=== PATIENT | female | born 1950 | race Caucasian/White ===

== ENCOUNTER 2021-12-23 15:21 | Outpatient (CLI) | payer SELFPAY, OTHER ==
--- NOTE | 2021-12-23 15:25 | MRI_ITS ---
STUDY: MR Spine Lumbar W/O Contrast 12/23/2021 4:45 PM REASON FOR EXAM: Female, 71 years old. Back pain Pain TECHNIQUE: MR Spine Lumbar W/O Contrast Standardized fat and water weighted pulse sequences were obtained. COMPARISON: None FINDINGS: T12-L1: Loss of intervertebral disc height. There is endplate spondylosis of the vertebral body. Normal central canal and intervertebral neuroforamina. There is bilateral facet arthropathy. Posterior disc bulge. Normal lumbar lordosis. There is no substantial scoliosis. Normal conus medullaris that terminates at the L1. L1-2: Loss of intervertebral disc height. There is endplate spondylosis of the vertebral body. Normal central canal and intervertebral neuroforamina. There is bilateral facet arthropathy. Posterior disc bulge. L2-3: Loss of intervertebral disc height. There is endplate spondylosis of the vertebral body. Normal central canal and intervertebral neuroforamina. There is bilateral facet arthropathy. Posterior disc bulge. L3-4: Loss of intervertebral disc height. There is endplate spondylosis of the vertebral body. Normal central canal and intervertebral neuroforamina. There is bilateral facet arthropathy. Posterior disc bulge. L4-5: Loss of intervertebral disc height. There is endplate spondylosis of the vertebral body. Narrowing of the neural foramina. There is bilateral facet arthropathy. Grade 1 anterolisthesis of L4 on L5. Posterior disc herniation. Mild spinal stenosis. L5-S1: Loss of intervertebral disc height. There is endplate spondylosis of the vertebral body. There is bilateral facet arthropathy. Posterior disc herniation. Bilateral neural foraminal stenosis. Compression of exiting nerve roots. Discogenic endplate changes. Normal visualized sacral ala. Normal visualized paraspinous soft tissue structures. MRI/Spine Lumbar (Routine) IMPRESSION: Multilevel degenerative changes, as described above. L4-5: Narrowing of the neural foramina. There is bilateral facet arthropathy. Grade 1 anterolisthesis of L4 on L5. Posterior disc herniation. Mild spinal stenosis. L5-S1: Posterior disc herniation. Bilateral neural foraminal stenosis. Compression of exiting nerve roots. Discogenic endplate changes. Electronically Signed: Pedro Escalante MD at 16:49 EDT ,
== END 2021-12-23 23:59 | disposition home or self-care (01) ==
PROVIDERS: PCP Family Medicine; Visit Provider Orthopaedic Surgery
DX: M48.061 Spinal stenosis, lumbar region without neurogenic claudication (principal)
CPT/HCPCS: 72148

== ENCOUNTER 2022-11-03 05:52 | Inpatient (IN) | payer SELFPAY ==
[2022-11-03] VITALS (36 sets, daily range): BP systolic 71–154; BP diastolic 42–96; PULSE 74–102; RESP 16–23; TEMP 36.1–37.1; O2SAT 80–100; BMI 32.7
[2022-11-03] MEDS: Lactated Ringers 1,000 ML 15 ML IV ×3 (06:15→14:58)
--- NOTE | 2022-11-03 06:30 | RAD_ITS ---
PROCEDURE: Posterior fusion at the L4-L5 and L5-S1 levels. DATE OF EXAMINATION: 11/03/2022. INDICATION: Female, 72 years old. Chronic low back pain. FLUOROSCOPY TIME (if supplied): (2 minutes) minutes/seconds. 9 images were submitted. RAD/Lumbar Spine 2 or 3 Views IMPRESSION: Intraoperative imaging provided for L4-L5 and L5-S1 fusion. Electronically Signed: New Allan MD at 13:32 EST ,
--- NOTE | 2022-11-03 07:16 | PCM.OPRPT ---
Problems Associated Problem List Diagnoses (1) Spinal stenosis at L4-L5 level: Report of Operation Date of Procedure: 11/03/22 Pre-Operative Diagnosis: 1. Lumbar stenosis, L4-5, L5-S1 with spondylosis 2. Lumbar degenerative disc disease, L4-5, L5-S1 Post-Operative Diagnosis: 1. Lumbar stenosis, L4-5, L5-S1 with spondylosis 2. Lumbar degenerative disc disease, L4-5, L5-S1 Surgery/Procedure Performed:: 1. L4-5 posterior lumbar interbody fusion 2. L5-S1 posterior lumbar interbody fusion 3. Insertion of intervertebral biomechanical devices x2 4. Structural allograft for spinal fusion 5. L4 bilateral laminectomies, foraminotomies, facetectomies, decompression of bilateral nerve roots 6. L5 bilateral laminectomies, foraminotomies, facetectomies, decompression of bilateral nerve roots 7. S1 bilateral laminectomies, foraminotomies, facetectomies, decompression of bilateral nerve roots 8. Pedicle screw fixation 9. Neuro monitoring bilateral upper and bilateral lower extremities Description of Surgical Findings:: The patient is a 72-year-old female with intractable back and leg pain. Image studies confirm the above diagnoses. She has failed conservative treatments to include medication physical therapy and injections. The patient opted for operative intervention understanding the risk to include but not limited to infection, bleeding, damage to nerves arteries and veins, possibility of spinal fluid leak, nonunion, hardware failure, continued pain, need for further surgery, deep vein thrombosis, pulmonary embolism, heart attack, risk of stroke or . The patient was identified in the preoperative holding area. There she received preoperative IV antibiotics Ancef and was then transferred to the operative suite. Once in the operative suite after general endotracheal anesthesia was established the patient was transferred prone to the [facility] operating table. All bony prominences were padded accordingly. The lumbar spine was prepped and draped in the standard surgical fashion. Bear hugger's were not turned on until the drapes were placed and sealed with Ioban. A midline incision was made and taken down to the level of the lumbodorsal fascia. The fascia was divided and subperiosteal dissection was taken down to the level of the transverse processes and sacral ala of L4, L5, and S1 bilaterally. Deep retractors were placed. A bone scalpel was used to make cuts in the lamina and then a series of Kerrisons and rongeurs were used removing the spinous process and lamina at L4 and L5. Then facetectomies of greater than 50% were performed as well as foraminotomies decompressing the bilateral nerve roots. Given the severity of the stenosis I needed to perform wide bilateral laminectomies and near complete facetectomies in order to decompress the neural elements thus creating instability necessitating the fusion. The nerve roots and dura were identified and retracted medially. A knife was utilized to make an annulotomy at L4-5. Endplate elevators, curettes, and pituitaries were utilized to remove disc material. Endplates were prepared with a rasp. An appropriate sized intervertebral peek cage device measuring 10 mm was packed with morselized cancellous allograft and impacted into position thus completing the posterior lumbar interbody fusion at L4-5. The same steps were performed at L5-S1 utilizing a peek cage device measuring 9 mm. Starting points for the pedicle screws were found at the junction of the superior articular process and transverse processes and sacral ala. A power bur was used for the starting points. Pedicle probes were placed bilaterally and then 6.5 x 50 mm screws were placed bilaterally at L4 and L5, 6.5 x 50 mm on the left and 6.5 x 45 mm on the right at S1. Connecting rods were applied and secured with set screws. X-rays were performed showing adequate placement of all hardware. The patient started to get hypotensive and there was some concern from anesthesia. Therefore the closing was expedited so that we could flip the patient supine. The incision was thoroughly irrigated. A deep drain was placed. The fascia was closed with #1 Vicryl, subcutaneous with 2-0 Vicryl and skin with 2-0 nylon. A sterile dressing was applied with 4 x 4's ABD and tape. Sponge instrument and needle counts were correct at the end of the case. Neurophysiologic monitoring was maintained at baseline throughout the duration of the case. The patient was extubated and taken to the PACU without incident. Surgeon: Reese Ortega Type of Anesthesia: General Drains: Hemovac Estimated Blood Loss (mL): 600 cc Fluids Replaced: 3500 cc Grafts/Implants Used: Unified spine, Talos, Vitae OS Complications None Admit VTE Documentation VTE Present on Admission: No
--- NOTE | 2022-11-03 07:17 | PCM.PN.ORT ---
Subjective Subjective The patient was seen and examined in the PACU. Still sedated. Opens her eyes to stimulus and moves all extremities grossly. She is on pressors as anesthesia is having difficulty keeping her blood pressure up. Objective Data Objective Data Vital Signs: Vital Signs Temp Pulse Resp BP Pulse Ox O2 Del Method 97.1 F L 89 18 154/92 H 97 Room Air 11/03/22 06:29 11/03/22 06:29 11/03/22 06:29 11/03/22 06:29 11/03/22 06:29 11/03/22 06:29 Oxygen Delivery Method Room Air Weight: 167 lb 8.821 oz Body Mass Index (BMI) 32.7 Lab / Micro Data Result Diagrams: 11/04/22 05:00 11/04/22 05:00 Physical Exam HEENT normocephalic and head/scalp atraumatic Eyes EOMs intact bilaterally and conjunctivae normal Neck General: normal visual inspection Chest inspection of chest normal and palpation of chest normal Resp normal respiratory effort and normal air movement Cardio regular rate, regular rhythm and peripheral pulses 2+ throughout GI soft to palpation, non-tender and non-distended Back/Spine Back/Spine Narrative: Dressing clean dry and intact. Drain in place and functioning with small amount of serosanguineous fluid in Cervical Spine: cervical ROM normal Thoracic Spine / Upper Back: normal to inspection Lumbar Spine / Lower Back: normal to inspection Extremity normal to inspection, normal capillary refill and no clubbing, cyanosis or edema Skin no rashes or lesions noted General Skin Exam: no breakdown Neuro moves all extremities, no focal motor deficits and deep tendon reflexes 2+ bilaterally Motor Exam: muscle tone normal throughout Assessment & Plan Assessment/Plan (1) Spinal stenosis at L4-L5 level: PLAN: Patient being admitted to ICU. Poultry Slaughterer consulted Keep dressing clean dry and intact. Keep drain in place and record output every shift. Continue antibiotics while drain in place Discussed the situation with the family and answered all of their questions.
--- NOTE | 2022-11-03 07:17 | PCM.DC.SUM ---
Providers Date of Admission: 11/03/22 Primary Care Physician: Dr. Guzman Chan MD Reason For Visit: lumbr 4-5, Lumbar 5-Sacral Posterior Spinal Interb Diagnosis Discharge Diagnosis (1) Spinal stenosis at L4-L5 level: Status: Acute Code(s): M48.061 - Spinal stenosis, lumbar region without neurogenic claudication Medications at Discharge Home Medications venlafaxine 37.5 mg capsule,extended release 24 hr (Effexor XR) 75 mg PO DAILY ANTIDEPRESSANT 12/06/21 dorzolamide 2 % eye drops 1 drp EACH EYE DAILY PREVENTION EYE DISEASE 09/09/22 latanoprost 0.005 % eye drops 1 drp EACH EYE DAILY EYE PREVENTION 09/09/22 timolol maleate 0.5 % eye drops 1 drp EACH EYE DAILY EYE PREVENTION 09/09/22 Bone And Tissue 2 cap PO/SL DAILY SUPPLEMENT 10/20/22 levothyroxine 50 mcg tablet 50 mcg PO DAILY THYROID 10/20/22 hydrocodone-acetaminophen 5-325mg 5mg-325mg 1 tab PO Q6H 7 days #28 tabs 11/03/22 Hospital Course Operations - (L4-5, L5-S1 posterior lumbar interbody fusion, decompression, posterior spinal fusion with instrumentation, use of allograft) Summary of Care Provided Minutes Spent on Discharge: 15 Hospital Course: The patient is a 72-year-old female who underwent L4-S1 fusion on 11/03/2022. Postoperatively she was hypotensive and on pressors and was subsequently admitted to the ICU. The coordinator cardiopulmonary services was consulted. She did well in the ICU and was off of pressors and her blood pressure was stable on postoperative day 1. She was subsequently admitted to the [facility] floor. The hospitalist was consulted for medical management. No other significant medical issues were reported. Her drain was pulled on postop day 3. She was doing well. Her pain was well controlled and she was mobilizing well.. She was subsequently discharged home on 11/06/2022 to follow-up with Dr. Ortega in 3 weeks Physical Exam Const alert, oriented x3 and no apparent distress General Appearance: cooperative, comfortable and well kempt HEENT normocephalic and head/scalp atraumatic Eyes EOMs intact bilaterally and conjunctivae normal Neck full ROM General: normal visual inspection Chest inspection of chest normal and palpation of chest normal Resp normal respiratory effort and normal air movement Effort and Inspection: able to speak in complete sentences Cardio regular rate and peripheral pulses 2+ throughout GI soft to palpation, non-tender and non-distended Back/Spine Back/Spine Narrative: Dressing clean dry and intact. Incision well approximated with interrupted sutures in place. No tenderness erythema drainage or fluctuance. Drain pulled Cervical Spine: cervical ROM normal Thoracic Spine / Upper Back: normal to inspection Lumbar Spine / Lower Back: normal to inspection Extremity normal to inspection, full ROM, normal capillary refill, no joint enlargement and no calf tenderness Skin no rashes or lesions noted General Skin Exam: no breakdown Neuro oriented x3, CN's II-XII intact bilaterally, moves all extremities, no focal motor deficits, no sensory deficits noted and deep tendon reflexes 2+ bilaterally Motor Exam: strength 5/5 throughout and muscle tone normal throughout Weight / BMI Weight Weight: 167 lb 8.821 oz Body Mass Index (BMI) 32.7 ABG / Lab / Microbiology Data Result Diagrams: 11/05/22 14:09 11/06/22 07:34 D/C Instructions Discharge Diet: No restrictions Lifting Restrictions: No lifting greater than 5 pounds Additional Activity Instructions: No repetitive bending or twisting. Wear back brace at all times. Okay to remove brace to sleep Call your doctor if your incision/area has: Continuous Slow Oozing, Sudden Increased Bleeding, Increased Pain/ Swelling, Increased Redness, Foul Smelling Discharge and Swelling at the incision site Call your doctor if you observe: Fever of 101 or Higher, Coldness, Increased Pain, Numbness or Tingling, Change in Color, Inability to urinate, Inability to have a bowel movement, Using more than 1 pad per hour, Shortness of breath, Dizziness, Fainting spells, Swelling in the ankles, Chest pain, Prolonged hiccupping, Increased palpitations (irregular heartbeat), Calf discomfort and Uncontrolled pain Cleanse incision/area with: Do not get Incision Wet and Keep Dressing Clean & Dry Additional Dressing/Incision Instructions: Change dressing daily with iodine gauze and tape. Use waterproof dressing to shower Please Follow Up With: Reese Ortega DO When: 3 weeks Meaningful Use Info Meaningful Use Diagnoses (Choose all that apply): None applicable Discharge Plan Admission Admit Date/Time: 11/03/22 05:52 Attending Provider: Reese Ortega Primary Care Provider: Guzman Chna Consulting Providers: Ny Hays ; Ny Mcwilliams ; Stacy Aj ; Adriana Stewart ; Jarred White ; Pino Gabriel ; Irvin Camilo ; Miguelina Chang ; Yair Tabares ; Raul Zhao ; Gaurav Yun ; Nannette Vogt ; Geovanny Matos ; Naila Santiago ; Adelso Hodgson ; Ayo May ; Estiven Donald ; Estelle Miranda ; Anthony Childers ; Pati Silva NP ; Anmol Joseph ; Phillip Negrete ; Sin Draper ; Kemar Ladd ; Flora Farris PATIENT MONITOR Instructions Additional Instructions / Restrictions: 1. During your procedure, you received sedation through your IV. Please follow these instructions for the next 24 hours: Do not drive a motor vehicle, do not drink any alcoholic beverages, and do not sign any legal documents or make personal or business decisions. A responsible adult should stay with you at least 6 hours after the procedure. 2. Keep your surgical site/incision clean and the dressing dry and intact. Change dressing daily. You may use an ice pack at the surgical site to reduce any swelling or discomfort. 3. Monitor the incision site for any signs or symptoms of infection. Watch for redness, excessive swelling or drainage, or continued pain at the incision site after 3 days. Contact your physician immediately for a fever, chills or a temperature of 101.5? F or greater. 4. Take your medication exactly as prescribed by your physician. Do not attempt to wean yourself off any of your medications even though your pain is improving. This process needs to be carefully monitored by your doctor. Take any antibiotics prescribed exactly as directed and until they are gone. 5. Avoid stretching, bending, pulling, twisting or any sudden movements. Do not bend or twist at the waist. 6. No lifting greater than 5 pounds. 7. Do not operate a motor vehicle, equipment or a power tool while taking pain medication 8. Do not have any manipulation done by a chiropractor or any other physician without first consulting with the surgeon 9. Please contact our office if you are even scheduled for a CT scan or an MRI. 11. Please call us if you have any questions, problems or concerns. Discharge Orders/Prescriptions Prescriptions: New hydrocodone-acetaminophen 5-325 mg tablet 1 tab PO Q6H 7 Days Qty: 28 0RF Continued venlafaxine [Effexor XR] 37.5 mg capsule,extended release 24hr 75 mg PO DAILY latanoprost 0.005 % drops 1 drp EACH EYE DAILY Label Comments: INSTILL 1 DROP IN BOTH EYES EVERY DAY AT BEDTIME timolol maleate 0.5 % drops 1 drp EACH EYE DAILY Label Comments: INSTILL 1 DROP IN BOTH EYES EVERY MORNING dorzolamide 2 % drops 1 drp EACH EYE DAILY Label Comments: INSTILL 1 DROP IN RIGHT EYE EVERY DAY levothyroxine 50 mcg Tablet 50 mcg PO DAILY Bone And Tissue 2 cap PO/SL DAILY Referrals / Follow Up: Reese Ortega DO [Med Staff - Active Staff] - Guzman Chan MD [Primary Care Provider] - Disposition Disposition (needs filled in before D/C Order can be placed): Home, Self Care
[2022-11-03] MEDS: Cefazolin 2 GM in 0.9% Normal Saline 100 ML IV (07:38)
[2022-11-03] MEDS: Cefazolin 1 GM/50 ML BAG IV ×2 (07:38→17:32)
[2022-11-03] MEDS: Heparin 10,000 UNITS/10 ML Vial 10000 UNITS (08:33)
[2022-11-03] MEDS: THROMBIN (RECOMBINANT) 20,000 UNIT VIAL 20000 UNIT TOPICAL (08:45)
[2022-11-03] MEDS: Bupivacaine 0.25% 30 ML Vial (12:00)
[2022-11-03 13:32] LABS: Hematocrit 20.9 % (37-47)
--- NOTE | 2022-11-03 15:41 | CT_ITS ---
We are attempting to reach an attending provider to discuss findings. An addendum with communication details will be sent when the communication is complete. STUDY: CT ABDOMEN AND PELVIS WITHOUT CONTRAST REASON FOR EXAM: Female, 72 years old. possible bleed, lumbar laminectomy today, hemoglobin dropped. RADIATION DOSAGE (If Supplied By Facility): CTDIvol = ( 13.30 ) mGy, DLP = ( 656.90 ) mGycm TECHNIQUE: Transaxial images were obtained from the dome of the diaphragm to the symphysis pubis without oral contrast, and without intravenous contrast. Sagittal and coronal images were reconstructed. Individualized dose optimization techniques were used for this CT. COMPARISON: None. FINDINGS: Minor bibasilar atelectasis.. The visualized portions of the heart are within normal limits. Moderate size hiatal hernia noted Liver is enlarged and fatty infiltrated without mass or bile duct dilatation. Calcified stones in the gallbladder without evidence for acute cholecystitis. Normal spleen. Normal pancreas. Normal bilateral adrenal glands. No evidence of renal obstruction. Tiny nonobstructing left renal calculus. There is a small simple cyst right kidney and complex cyst in the left kidney with mild calcification. Normal visualized stomach. Normal small intestine. Hyperattenuated intraluminal content noted within the proximal ascending colon.. This could represent recently ingested radiopaque material however intraluminal hemorrhage not excluded. No evidence for acute appendicitis Atherosclerotic changes of the aorta without evidence for aneurysm. Normal inferior vena cava. Normal retroperitoneum. Incompletely distended thick walled bladder containing Carter catheter. Uterus not visualized consistent with hysterectomy Large fat-containing right inguinal hernia.. Postsurgical changes status post bilateral laminectomy and posterior fusion with disc spacer placement at L4-5 and L5-S1 There is diffuse soft tissue density within the spinal canal obscuring the epidural fat at both L4-5 and more pronounced at L5-S1 in association with tiny air bubbles consistent with postsurgical change. There are similar changes seen within the posterior paraspinous soft tissues. Percutaneously placed drain is noted on the right at L4-5. Characterization of the soft tissues density within the spinal canal is difficult due to artifact related to metallic hardware.. Possibility of hemorrhage within the canal or posterior paraspinous soft tissues cannot be entirely excluded. This may be further assessed with MRI if clinically warranted. There is no definitive evidence for retroperitoneal hemorrhage CT/Abdomen/Pelvis without Cont IMPRESSION: Postsurgical changes L4-5 and L5-S1.. No definitive evidence for significant intraspinal hemorrhage however cannot definitively exclude hemorrhage within the canal or posterior paraspinous soft tissues. MRI would be helpful for further characterization if clinically warranted There is hyperattenuated density within the proximal ascending colon of indeterminate etiology. Cannot exclude acute hemorrhage. Radionuclide tagged red blood cells study would be helpful for further evaluation if clinically warranted Electronically Signed: Reese Harley MD at 16:49 EST ,
--- NOTE | 2022-11-03 15:52 | CON.PCM.HO_ITS ---
Assessment & Plan Assessment/Plan (1) Spinal stenosis at L4-L5 level: (2) Hypotension: (3) Shock: PLAN: Plan 1. Shock exact etiology unclear possible differential distributive/hypovolemic: Patient is, may be due to hypovolemia or distributive. Patient is being admitted in ICU. PICC line ordered. Currently on Home-Synephrine but I will discontinue and change it to norepinephrine drip. [employer] Reading [employer] consult. Patient heart rate is in normal limit. No hypoxia or tachypnea. Labs ordered including CBC posttransfusion, CMP, PT/INR, PTT, magnesium and phosphorus ordered. On Ringer lactate. 2. Severe anemia: Preop patient's H&H was 12.3/27.5%. Platelet count 294,000 on 10/12/2022. Hemoglobin dropped to 6.0/21%. Patient is on secondary to PRBC transfusion. Twelve-lead EKG shows normal sinus rhythm at 68 bpm, low voltage QRS, QTc 490 ms. Patient not having any chest pressure or anginal-like sympt oms. 3. Lumbar spinal stenosis L4-5 L5-S1 with spondylosis status post L5-S1 posterior lumbar interbody fusion, L4, L5 and S1 bilateral laminectomy with pedicle screw fixation on 11/03/2022: Postop day 0: Discussed with the Jordan. Monitor Carter catheter urine output. Patient has surgical drain. 4. Hypothyroidism: Patient last TSH was 9.0. TSH and free T4 tomorrow AM. Continue levothyroxine. 5. History of TIA, migraine headache and chronic back pain with lumbar spinal stenosis: Home medication reconciliation done. DVT prophylaxis: Bilateral SCDs. Currently, pharmacological prophylaxis contraindicated in view of shock and severe anemia HPI Consult Data Date of Consult: 11/03/22 Attending Care Provider: Hypotension, patient on vasopressor. HPI Narrative Reason for Consultation: Hypotension on vasopressor. HPI Narrative: Seen and examined in the PACU. SAAD WEBSTER, is a 72 F had elective L4-5, L5-S1 lumbar fusion with bilateral laminectomy of L4-L5 and S1 with pedicle screws fixation today. Patient has lumbar spinal stenosis, degenerative disc disease for long time. She she has intractable back pain and leg pain and failed conservative treatment including physical therapy and spinal injections therefore had elective surgery today by Dr. Ortega. She had surgery through spinal approach. During surgery, her BP dropped to systolic 81 and was given IV fluid restriction and then started on Home- Synephrine drip.H&H also done in afternoon shows 6.0/20% she has second unit of PRBC transfusion running. Dr. Reese Ortega called me to see the patient as she needs ICU care. I talked to anesthesiologist Dr. Quintana and he said patient had surgery on hi s supine position with legs and upper body down therefore she might of pooling of blood in lower extremities. Estimated blood loss about 500 mL. Patient is awake and she is not hypoxic pulse ox 94% on room air. Last BP 118/67 and vasopressin and Home-Synephrine. Patient is further admitted in ICU. [facility] Medical History Back pain History of pain when walking Migraine headache Non-smoker Shortness of breath on exertion Stroke/cerebrovascular accident Thyroid disease TIA (transient ischemic attack) Wears glasses Wears hearing aid Home Medications venlafaxine 37.5 mg capsule,extended release 24 hr (Effexor XR) 75 mg PO DAILY ANTIDEPRESSANT 12/06/21 [History Last Taken 11/03/22] dorzolamide 2 % eye drops 1 drp EACH EYE DAILY PREVENTION EYE DISEASE 09/09/22 [History Last Taken 11/02/22] latanoprost 0.005 % eye drops 1 drp EACH EYE DAILY EYE PREVENTION 09/09/22 [History Last Taken 11/02/22] timolol maleate 0.5 % eye drops 1 drp EACH EYE DAILY EYE PREVENTION 09/09/22 [History Last Taken 11/02/22] Bone And Tissue 2 cap PO/SL DAILY SUPPLEMENT 10/20/22 [History Last Taken Unknown] levothyroxine 50 mcg tablet 50 mcg PO DAILY THYROID 10/20/22 [History Last Taken 11/03/22] hydrocodone-acetaminophen 5-325mg 5mg-325mg 1 tab PO Q6H 7 days #28 tabs 11/03/22 [Rx Last Taken Unknown] Allergy/AdvReac Type Severity Reaction Status Date / Time No Known Allergies Allergy Verified 11/03/22 06:27 Surgical History H/O eye surgery H/O hernia repair H/O: hysterectomy Hx of appendectomy Hx of knee surgery Social History Smoking Status: Never smoker alcohol intake: never ROS ROS Narrative Constitutional: Denies dizziness lightheadedness. HEENT: Reports systems reviewed and no addt'l complaints, except as documented Respiratory/Chest: Denies chest pain, shortness of breath at rest or with exertion. Denies dyspnea. Gastrointestinal: Denies coffee ground emesis, hematemesis or vomiting Genitourinary: Has Carter catheter. Denies burning micturition prior to surgery. Musculoskeletal: Reports joint pain and limited range of motion Spine: Spinal surgery. Drain present Neurologic: Denies seizure-like activity. History of TIA. History of chronic migraine headache skin: No ulcer. No rash Endocrinology: Reports systems reviewed and no addt'l complaints, except as documented Hematologic/Lymphatic: Reports systems reviewed and no addt'l complaints, except as documented Rest 14 ROS are negative except as mentioned in HPI Physical Exam Narrative Physical exam General: Awake, alert oriented x3, Cooperative HEENT: Atraumatic, PERRLA, EOMI, Normocephalic Oral: Oral mucosa dry no Gingival or Mucosal Lesions/ Ulcerations Neck: Supple, No JVD, Negative Carotid Bruits Lungs: Air entry diminished in bilateral lung bases. No crepitation/rhonchi. No hypoxia or tachypnea. Cardiovascular: Sinus rhythm, not tachycardic. Low-volume pulse. Hypotension on vasopressor. No murmurs Abdomen: Bowel Sounds sluggish, Soft, Non Tender, Non-Distended : Carter catheter, no urine output. No renal angle tenderness. No suprapubic tenderness. Extremities: No edema, Capillary Refill Less than 3 Seconds Skin: No rashes, No breakdown Musculoskeletal: No Tenderness to Palpation of Joints or Extremities. ROM and muscle strength did not examine as patient on vasopressor Spine: Has drain. Lumbar laminectomy and fusion surgery today. Neurological: Cranial nerves II-XII grossly intact, DTR 2+/4 Psych/Mental Status: Flat affect Lab / Micro Data Result Diagrams: 11/03/22 13:08 Labs: Laboratory Results - last 24 hr 11/03/22 13:08: Hgb 6.0 L*, Hct 20.9 L 11/03/22 13:08: Blood Type A NEGATIVE, Antibody Screen NEGATIVE, Crossmatch See Detail Radiology Impression Lumbar Spine X-Ray 11/03/22 06:30 IMPRESSION: Intraoperative imaging provided for L4-L5 and L5-S1 fusion. Electronically Signed: New Allan MD at 13:32 EST , Charges/Coding Visit Charges Office Visits / Consults: [id number] IP Consult L5
[2022-11-03] MEDS: Lactated Ringers 1,000 ML 100 ML IV (17:38)
[2022-11-03] MEDS: Morphine 4 MG/ML Syringe IV (19:03)
[2022-11-03 20:33] LABS: Absolute Lymphocyte Count 1.22 X10^3/uL (0.83-4.51); Absolute Neutrophil Count 13.5 X10^3/uL (2.0-7.7); Basophil# 0.02 X10^3/uL; Basophil% 0.1 % (0-1); Hematocrit 36.1 % (37-47); Hemoglobin 11.4 g/dL (12.0-15.0); Lymphocyte # 1.22 X10^3/ul (0.83-4.51); Lymphocyte % 7.7 % (19-41); Mean Corp Hgb Conc 31.6 g/dL (32-36); Mean Corpuscular Hgb 28.1 pg (27.0-32.0); Mean Corpuscular Volume 89.1 fL (81-99); Mean Platelet Vol. 9.9 fl (6.2-12.0); Monocyte# 0.97 X10^3/uL; Monocyte% 6.1 % (0-10); NRBC Flagged by Analyzer 0 % (0-5); Neutrophil # 13.48 X10^3/uL (2.7-7.7); Neutrophil % 85.2 % (47-70); Platelet Count 202 K/mm3 (150-450); RBC Distribution Width CV 14.4 % (11.6-14.6); RBC Distribution Width SD 46.5 fl (35.1-43.9); Red Blood Count 4.05 M/mm3 (4.2-5.4); White Blood Count 15.8 K/mm3 (4.4-11.0)
[2022-11-03] MEDS: Lactated Ringers 1,000 ML 999 ML IV (20:34)
[2022-11-03 21:00] LABS: Albumin, Serum 2.7 g/dL (3.2-5.0); BUN 19 mg/dL (7-18); BUN/Creat Ratio 15.7 RATIO (10-20); Creatinine, Serum 1.21 mg/dL (0.55-1.02); EST Glomerular Filtration Rate 46 mL/min (>60); Est Glom Filt Rate - Afr Amer 56 mL/min (>60); Estimated Creatinine Clearance 31.71 ml/min; Glucose 185 mg/dL (74-106); Protein, Total 5.5 g/dL (6.4-8.2)
[2022-11-03 21:01] LABS: AST(SGOT) 133 U/L (15-37); Alanine Aminotransfer ALT/SGPT 92 U/L (13-56); Alkaline Phosphatase 32 U/L (45-117); Anion Gap 8 (5-15); Calcium,Total 7.4 mg/dL (8.5-10.1); Chloride 107 mmol/L (98-107); Globulin 2.8 g/dL (2.2-4.2); Magnesium 1.8 mg/dL (1.6-2.6); Phosphorus 3.9 mg/dL (2.5-4.9); Potassium 5.4 mmol/L (3.5-5.1); Sodium Level 140 mmol/L (136-145)
[2022-11-03] MEDS: Acetaminophen 500 MG Tablet 1000 MG PO (21:36)
[2022-11-03] MEDS: oxyCODONE 5 MG Tablet PO (21:37)
[2022-11-03] MEDS: Senna/Docusate Sodium 1 Tablet 2 TABLET PO (21:37)
[2022-11-03] MEDS: Latanoprost 0.005% 1 Bottle 1 DRP EACH EYE (21:38)
--- NOTE | 2022-11-03 22:00 | NURSING ---
PTT/PT/INR rejected by lab due to insufficient amount of blood. Lab notified to come draw due to poor vascular access.
[2022-11-03 23:41] LABS: International Normalized Ratio 1.2; Prothrombin Time (Protime)PT. 15.2 SECONDS (11.7-14.9)
[2022-11-04] VITALS (23 sets, daily range): BP systolic 92–131; BP diastolic 50–90; PULSE 92–112; RESP 14–22; TEMP 36.4–37.2; O2SAT 92–99; BMI 34.1
[2022-11-04] MEDS: Cefazolin 1 GM/50 ML BAG IV ×3 (01:23→21:10)
[2022-11-04] MEDS: oxyCODONE 5 MG Tablet PO ×3 (05:04→21:10)
[2022-11-04] MEDS: Levothyroxine 50 MCG Tablet PO (05:05)
[2022-11-04] MEDS: Acetaminophen 500 MG Tablet 1000 MG PO ×3 (05:05→21:12)
[2022-11-04 05:08] LABS: Absolute Lymphocyte Count 1.32 X10^3/uL (0.83-4.51); Absolute Neutrophil Count 7.4 X10^3/uL (2.0-7.7); Basophil# 0.01 X10^3/uL; Basophil% 0.1 % (0-1); Hematocrit 26.3 % (37-47); Hemoglobin 8.6 g/dL (12.0-15.0); Lymphocyte # 1.32 X10^3/ul (0.83-4.51); Lymphocyte % 13.4 % (19-41); Mean Corp Hgb Conc 32.7 g/dL (32-36); Mean Corpuscular Hgb 28.5 pg (27.0-32.0); Mean Corpuscular Volume 87.1 fL (81-99); Mean Platelet Vol. 9.5 fl (6.2-12.0); Monocyte% 11.1 % (0-10); NRBC Flagged by Analyzer 0 % (0-5); Neutrophil # 7.41 X10^3/uL (2.7-7.7); Platelet Count 136 K/mm3 (150-450); RBC Distribution Width CV 14.7 % (11.6-14.6); Red Blood Count 3.02 M/mm3 (4.2-5.4); White Blood Count 9.9 K/mm3 (4.4-11.0)
--- NOTE | 2022-11-04 05:15 | RAD_ITS ---
STUDY: X-RAY CHEST REASON FOR EXAM: Female, 72 years old. sob TECHNIQUE: Single frontal view of the chest. COMPARISON: None. FINDINGS: Possible lingular infiltrate or small effusion. There is no demonstrated pleural abnormality. Normal size heart. Normal mediastinum and kia. Normal visualized pulmonary arteries. Normal visualized aortic arch and descending thoracic aorta. Normal visualized thoracic spine. Normal visualized ribs, clavicles, and shoulders. There is no demonstrated abnormality of the visualized soft tissue structures of the upper abdomen. RAD/Chest 1 View (Portable) IMPRESSION: Possible small effusion or lingular infiltrate Electronically Signed: Aaron Izquierdo MD at 0:00 EST ,
[2022-11-04 05:19] LABS: Anion Gap 6 (5-15); BUN 20 mg/dL (7-18); BUN/Creat Ratio 16.4 RATIO (10-20); Calcium,Total 7.2 mg/dL (8.5-10.1); Chloride 107 mmol/L (98-107); Creatinine, Serum 1.22 mg/dL (0.55-1.02); EST Glomerular Filtration Rate 46 mL/min (>60); Est Glom Filt Rate - Afr Amer 56 mL/min (>60); Estimated Creatinine Clearance 31.45 ml/min; Glucose 138 mg/dL (74-106); Potassium 4.8 mmol/L (3.5-5.1); Sodium Level 138 mmol/L (136-145)
--- NOTE | 2022-11-04 07:26 | EX.PCM.CONCC ---
Assessment & Plan Assessment/Plan (1) Hypotension: PLAN: Plan RECOMMENDATIONS: 1. Continue to monitor H&H and transfuse if hemoglobin drops below 7 g/dL. 2. Routine postoperative care per orthopedic recommendations. 3. Encourage incentive spirometer use and mobilize patient as tolerated. 4. We will sign off from a critical care perspective. Please call with any additional questions. IMPRESSIONS: 1. Hypotension Most likely multifactorial in etiology with vasodilatory effects of anesthesia coupled with fluid shifts intraoperatively and anemia, requiring transfusion of blood products. With volume expansion and transfusion of packed red blood cells, the patient's hemodynamic status has stabilized. She has been weaned from vasopressors and remains hemodynamically stable. I would recommend that we continue to monitor her H&H and transfuse if hemoglobin drops below 7 g/dL. 2. History of spinal stenosis status post L4-S1 fusion Continue routine postoperative care per orthopedic surgery recommendations. 3. History of hypothyroidism/TIA/chronic back pain/depression Complicates care, management, recovery and prognosis. Continue home medications as indicated. This note was generated with [employer] dictation software. It may contain incorrect words, spelling, and punctuation that were not noted in checking the note before signing. HPI Consult Data Date of Consult: 11/05/22 HPI Narrative Reason for Consultation: Hypotension and anemia HPI Narrative: The patient is a 72-year-old female, with a history as outlined below, who presented presented to the hospital for an elective surgery due to a history of spinal stenosis and neurogenic claudication. On November 03, the patient underwent an L4-S1 fusion. Intraoperative blood loss was noted to be 600 cc with a total of 3.5 L of fluid administered intraoperatively. According to documentation, the patient's preoperative H&H on October 12, 2022 was noted to be 12.3 and 27, respectively. Platelet count was noted to be 294,000. According to anesthesia documentation, the patient became hypotensive intraoperatively and was started on phenylephrine. Postprocedure lab work indicated a hemoglobin of 6.0. The patient, to date, has been transfused 2 units of packed red blood cells. Her hemoglobin this morning was noted to be 8.6 g/dL. Ultimately, the patient was transferred to the ICU postoperatively due to her vasopressor requirement. However, with volume expansion and transfusion of blood products, the patient was able to be weaned off of Levophed. She is currently documented to be overall net +6.7 L for the hospitalization. She is maintaining appropriate oxygen saturations on room air. She has no specific complaints, other than residual low back pain. [facility] Medical History Back pain History of pain when walking Migraine headache Non-smoker Shortness of breath on exertion Stroke/cerebrovascular accident Thyroid disease TIA (transient ischemic attack) Wears glasses Wears hearing aid Home Medications venlafaxine 37.5 mg capsule,extended release 24 hr (Effexor XR) 75 mg PO DAILY ANTIDEPRESSANT 12/06/21 [History Last Taken 11/03/22] dorzolamide 2 % eye drops 1 drp EACH EYE DAILY PREVENTION EYE DISEASE 09/09/22 [History Last Taken 11/02/22] latanoprost 0.005 % eye drops 1 drp EACH EYE DAILY EYE PREVENTION 09/09/22 [History Last Taken 11/02/22] timolol maleate 0.5 % eye drops 1 drp EACH EYE DAILY EYE PREVENTION 09/09/22 [History Last Taken 11/02/22] Bone And Tissue 2 cap PO/SL DAILY SUPPLEMENT 10/20/22 [History Last Taken Unknown] levothyroxine 50 mcg tablet 50 mcg PO DAILY THYROID 10/20/22 [History Last Taken 11/03/22] hydrocodone-acetaminophen 5-325mg 5mg-325mg 1 tab PO Q6H 7 days #28 tabs 11/03/22 [Rx Last Taken Unknown] Allergy/AdvReac Type Severity Reaction Status Date / Time No Known Allergies Allergy Verified 11/03/22 06:27 Surgical History H/O eye surgery H/O hernia repair H/O: hysterectomy Hx of appendectomy Hx of knee surgery Social History Smoking Status: Never smoker alcohol intake: never ROS ROS Narrative 10 systems were reviewed with pertinent positives as noted in the HPI above. Physical Exam Const alert and no apparent distress General Appearance: cooperative HEENT normocephalic and head/scalp atraumatic Eyes PERRL, EOMs intact bilaterally and conjunctivae normal Neck supple General: trachea midline Chest inspection of chest normal Resp normal respiratory effort Auscultation: Negative for rales, rhonchi or wheezes Cardio regular rate and regular rhythm GI normal to inspection, nondistended, normoactive bowel sounds Extremity no clubbing, cyanosis or edema Skin no rashes or lesions noted Neuro no focal motor deficits Psych cooperative and affect normal Lab / Micro Data Result Diagrams: 11/05/22 03:30 11/05/22 03:30 Labs: Laboratory Results - last 24 hr 11/03/22 13:08: Hgb 6.0 L*, Hct 20.9 L 11/03/22 13:08: Blood Type A NEGATIVE, Antibody Screen NEGATIVE, Crossmatch See Detail 11/03/22 20:25: WBC 15.8 H, RBC 4.05 L, Hgb 11.4 L, Hct 36.1 L, MCV 89.1, MCH 28.1, MCHC 31.6 L, RDW Std Deviation 46.5 H, RDW Coeff of Mayda 14.4, Plt Count 202, MPV 9.9, Immature Gran % (Auto) 0.900, Neut % (Auto) 85.2 H, Lymph % (Auto) 7.7 L, Garrard % (Auto) 6.1, Eos % (Auto) 0.0, Baso % (Auto) 0.1, Absolute Neuts (auto) 13.5 H, Absolute Lymphs (auto) 1.22, Nucleated RBC % 0 11/03/22 20:25: PT Cancelled, INR Cancelled, APTT Cancelled 11/03/22 20:25: Sodium 140, Potassium 5.4 H, Chloride 107, Carbon Dioxide 25.0, Anion Gap 8, BUN 19 H, Creatinine 1.21 H, Estim Creat Clear Calc 31.71, Est GFR (MDRD) Af Amer 56 L, Est GFR (MDRD) Non-Af 46 L, BUN/Creatinine Ratio 15.7, Glucose 185 H, Calcium 7.4 L, Phosphorus 3.9, Magnesium 1.8, Total Bilirubin 0.60, AST 133 H, ALT 92 H, Alkaline Phosphatase 32 L, Total Protein 5.5 L, Albumin 2.7 L, Globulin 2.8, Albumin/Globulin Ratio 1.0 11/03/22 23:13: PT 15.2 H, INR 1.2, APTT 23.0 L 11/04/22 05:00: WBC 9.9, RBC 3.02 L, Hgb 8.6 L, Hct 26.3 L, MCV 87.1, MCH 28.5, MCHC 32.7, RDW Std Deviation 47.0 H, RDW Coeff of Mayda 14.7 H, Plt Count 136 L, MPV 9.5, Immature Gran % (Auto) 0.400, Neut % (Auto) 75.0 H, Lymph % (Auto) 13.4 L, Garrard % (Auto) 11.1 H, Eos % (Auto) 0.0, Baso % (Auto) 0.1, Absolute Neuts (auto) 7.4, Absolute Lymphs (auto) 1.32, Nucleated RBC % 0 11/04/22 05:00: Sodium 138, Potassium 4.8, Chloride 107, Carbon Dioxide 25.0, Anion Gap 6, BUN 20 H, Creatinine 1.22 H, Estim Creat Clear Calc 31.45, Est GFR (MDRD) Af Amer 56 L, Est GFR (MDRD) Non-Af 46 L, BUN/Creatinine Ratio 16.4, Glucose 138 H, Calcium 7.2 L Radiology Impression Lumbar Spine X-Ray 11/03/22 06:30 IMPRESSION: Intraoperative imaging provided for L4-L5 and L5-S1 fusion. Electronically Signed: New Allan MD at 13:32 EST , Abdomen/Pelvis CT 11/03/22 15:41 IMPRESSION: Postsurgical changes L4-5 and L5-S1.. No definitive evidence for significant intraspinal hemorrhage however cannot definitively exclude hemorrhage within the canal or posterior paraspinous soft tissues. MRI would be helpful for further characterization if clinically warranted There is hyperattenuated density within the proximal ascending colon of indeterminate etiology. Cannot exclude acute hemorrhage. Radionuclide tagged red blood cells study would be helpful for further evaluation if clinically warranted Electronically Signed: Reese Harley MD at 16:49 EST , ADDENDUM: 11/03/22 1657 IMPRESSION: Postsurgical changes L4-5 and L5-S1.. No definitive evidence for significant intraspinal hemorrhage however cannot definitively exclude hemorrhage within the canal or posterior paraspinous soft tissues. MRI would be helpful for further characterization if clinically warranted There is hyperattenuated density within the proximal ascending colon of indeterminate etiology. Cannot exclude acute hemorrhage. Radionuclide tagged red blood cells study would be helpful for further evaluation if clinically warranted N.B. : The above Results were Read Back by Reese Harley MD to Eduardo Rosario RN, and understanding confirmed on 11/03/2022 16:50:29 (ET). Electronically Signed: Reese Harley MD at 16:49 EST , Charges/Coding Visit Charges Inpatient E&M: 09940 Init Hosp L3
--- NOTE | 2022-11-04 07:33 | PN.HOSP_ITS ---
Hospitalist Note Chart reviewed. Patient transferred to the ICU. Hospitalist and forest and conservation worker consulted. We will follow peripherally while patient is in the intensive care unit.
--- NOTE | 2022-11-04 07:33 | PCM.HOSP.N ---
Hospitalist Note Chart reviewed. Patient transferred to the ICU. Hospitalist and news wire photo operator consulted. We will follow peripherally while patient is in the intensive care unit.
--- NOTE | 2022-11-04 07:43 | PN.ORTHO_ITS ---
Subjective Subjective The patient was seen and examined postoperative day 1. She is lying in bed resting comfortably. Her pain is minimal. She is alert and oriented and comfortable. She denies any acute numbness tingling or weakness Objective Data Objective Data Vital Signs: Vital Signs Temp Pulse Resp BP Pulse Ox O2 Del Method O2 Flow Rate 97.8 F 102 H 14 97/52 L 95 Nasal Cannula 2 11/04/22 06:00 11/04/22 07:00 11/04/22 07:00 11/04/22 07:00 11/04/22 07:00 11/04/22 07:00 11/04/22 07:00 Oxygen Flow Rate (L/min) 2 Oxygen Delivery Method Nasal Cannula Weight: 180 lb 12.465 oz Body Mass Index (BMI) 34.1 Intake & Output: Intake and Output for Last 24 Hours 11/02/22 11/03/22 11/04/22 23:59 23:59 23:59 Intake Total 7431.73 / 7431.73 756.67 / 756.67 Output Total 1060 / 1060 400 / 400 Balance 6371.73 / 6371.73 356.67 / 356.67 Lab / Micro Data Result Diagrams: 11/04/22 05:00 11/04/22 05:00 Labs: Laboratory Results - last 24 hr 11/03/22 13:08: Hgb 6.0 L*, Hct 20.9 L 11/03/22 13:08: Blood Type A NEGATIVE, Antibody Screen NEGATIVE, Crossmatch See Detail 11/03/22 20:25: WBC 15.8 H, RBC 4.05 L, Hgb 11.4 L, Hct 36.1 L, MCV 89.1, MCH 28.1, MCHC 31.6 L, RDW Std Deviation 46.5 H, RDW Coeff of Mayda 14.4, Plt Count 202, MPV 9.9, Immature Gran % (Auto) 0.900, Neut % (Auto) 85.2 H, Lymph % (Auto) 7.7 L, Boyle % (Auto) 6.1, Eos % (Auto) 0.0, Baso % (Auto) 0.1, Absolute Neuts (auto) 13.5 H, Absolute Lymphs (auto) 1.22, Nucleated RBC % 0 11/03/22 20:25: PT Cancelled, INR Cancelled, APTT Cancelled 11/03/22 20:25: Sodium 140, Potassium 5.4 H, Chloride 107, Carbon Dioxide 25.0, Anion Gap 8, BUN 19 H, Creatinine 1.21 H, Estim Creat Clear Calc 31.71, Est GFR (MDRD) Af Amer 56 L, Est GFR (MDRD) Non-Af 46 L, BUN/Creatinine Ratio 15.7, Glucose 185 H, Calcium 7.4 L, Phosphorus 3.9, Magnesium 1.8, Total Bilirubin 0.60, AST 133 H, ALT 92 H, Alkaline Phosphatase 32 L, Total Protein 5.5 L, Albumin 2.7 L, Globulin 2.8, Albumin/Globulin Ratio 1.0 11/03/22 23:13: PT 15.2 H, INR 1.2, APTT 23.0 L 11/04/22 05:00: WBC 9.9, RBC 3.02 L, Hgb 8.6 L, Hct 26.3 L, MCV 87.1, MCH 28.5, MCHC 32.7, RDW Std Deviation 47.0 H, RDW Coeff of Mayda 14.7 H, Plt Count 136 L, MPV 9.5, Immature Gran % (Auto) 0.400, Neut % (Auto) 75.0 H, Lymph % (Auto) 13.4 L, Boyle % (Auto) 11.1 H, Eos % (Auto) 0.0, Baso % (Auto) 0.1, Absolute Neuts (auto) 7.4, Absolute Lymphs (auto) 1.32, Nucleated RBC % 0 11/04/22 05:00: Sodium 138, Potassium 4.8, Chloride 107, Carbon Dioxide 25.0, Anion Gap 6, BUN 20 H, Creatinine 1.22 H, Estim Creat Clear Calc 31.45, Est GFR (MDRD) Af Amer 56 L, Est GFR (MDRD) Non-Af 46 L, BUN/Creatinine Ratio 16.4, Glucose 138 H, Calcium 7.2 L Radiography Diagnostic Testing: Radiology Impression Lumbar Spine X-Ray 11/03/22 06:30 IMPRESSION: Intraoperative imaging provided for L4-L5 and L5-S1 fusion. Electronically Signed: New Allan MD at 13:32 EST , Abdomen/Pelvis CT 11/03/22 15:41 IMPRESSION: Postsurgical changes L4-5 and L5-S1.. No definitive evidence for significant intraspinal hemorrhage however cannot definitively exclude hemorrhage within the canal or posterior paraspinous soft tissues. MRI would be helpful for further characterization if clinically warranted There is hyperattenuated density within the proximal ascending colon of indeterminate etiology. Cannot exclude acute hemorrhage. Radionuclide tagged red blood cells study would be helpful for further evaluation if clinically warranted Electronically Signed: Reese Harley MD at 16:49 EST , ADDENDUM: 11/03/22 1657 IMPRESSION: Postsurgical changes L4-5 and L5-S1.. No definitive evidence for significant intraspinal hemorrhage however cannot definitively exclude hemorrhage within the canal or posterior paraspinous soft tissues. MRI would be helpful for further characterization if clinically warranted There is hyperattenuated density within the proximal ascending colon of indeterminate etiology. Cannot exclude acute hemorrhage. Radionuclide tagged red blood cells study would be helpful for further evaluation if clinically warranted N.B. : The above Results were Read Back by Reese Harley MD to Eduardo Rosario RN, and understanding confirmed on 11/03/2022 16:50:29 (ET). Electronically Signed: Reese Harley MD at 16:49 EST , Physical Exam Const alert, oriented x3 and no apparent distress General Appearance: cooperative, comfortable and well kempt HEENT normocephalic and head/scalp atraumatic Eyes EOMs intact bilaterally and conjunctivae normal Neck full ROM General: normal visual inspection Chest inspection of chest normal and palpation of chest normal Resp normal respiratory effort and normal air movement Effort and Inspection: able to speak in complete sentences Cardio regular rate, regular rhythm and peripheral pulses 2+ throughout GI soft to palpation, non-tender and non-distended Back/Spine Back/Spine Narrative: Dressing clean dry and intact. Drain in place and functioning. Nursing reported 325 cc out of the drain overnight Cervical Spine: cervical ROM normal Thoracic Spine / Upper Back: normal to inspection Lumbar Spine / Lower Back: normal to inspection Extremity normal to inspection, full ROM, normal capillary refill and no calf tenderness Skin no rashes or lesions noted General Skin Exam: no breakdown Neuro oriented x3, CN's II-XII intact bilaterally, moves all extremities, no focal motor deficits, no sensory deficits noted and deep tendon reflexes 2+ bilaterally Motor Exam: strength 5/5 throughout and muscle tone normal throughout Assessment & Plan Assessment/Plan (1) Spinal stenosis at L4-L5 level: PLAN: Continue pain control and activity as tolerated Okay to be up with physical therapy Keep dressing clean dry and intact. Keep drain in place and record output every shift Continue antibiotics while drain in place Transfer to [facility] floor when okay with bulldozer press operator
[2022-11-04] MEDS: Dorzolamide 2% 10ml Bottle 1 DRP EACH EYE (09:24)
[2022-11-04] MEDS: Senna/Docusate Sodium 1 Tablet 2 TABLET PO ×2 (09:24→21:13)
[2022-11-04] MEDS: Venlafaxine XR 75 MG Capsule PO (09:24)
[2022-11-04] MEDS: Ensure Surgery 237 ML LIQUID PO ×3 (09:24→16:21)
[2022-11-04] MEDS: Polyethylene Glycol 3350 17 GM PACKET PO (09:24)
[2022-11-04 10:40] LABS: Hematocrit 26.5 % (37-47); Hemoglobin 8.5 g/dL (12.0-15.0)
--- NOTE | 2022-11-04 12:20 | CASEMGMT ---
RN CM VICE INVESTIGATOR CM to room to meet with patient for initial transition planning/care coordination assessment. ESTHER ESTRADA introduced self and role at [facility]. Pt voices understanding and consents to assessment at this time. Pt resting in bed in no distress at this time. Pt is A/O at this time and answers all questions appropriately. Care providers, pharmacy, and demographics verified/updated at this time. PCP: Dr Chan Specialists: Dr Ortega-anton Preferred Pharmacy: [facility] retail Insurance: [facility] Package plan Prescription Benefit: No rx benefits Living Will/HPOA: Pt does not currently have LW/HCPOA and declines info at this time. LNOK: dtr, Evelyne. dtr, Alis. 2 other children Living Arrangements: Lives alone in 2-story home w/basement w/3 steps to enter. [employer]. Dtr, Evelyne, and Evelyne's family live next-door and able to assist if needed. Pt states, if she needs someone to stay w/her @ discharge, then she plans to go to Evelyne's home. There are no steps to enter @ Evelyne'[employer] house. Pt is indep @ baseline. Transportation: Dtr (Alis) and son-in-law both drive. Pt also hires drivers. DME: States has the following DME: cane, toilet riser, and walker. Pt states would like to get a walker w/wheels and her dtr's are looking into getting one. She is aware of the local [facility] warehouses. She was also made aware of other locations that sell these. Pt states no need for further DME at this time. HHC/SNF: No hx of either. No needs identified. Pt wishes to return home and states has no concerns with going home at time of discharge. CM to follow for any further discharge planning/needs. Pt voices no further concerns/needs at this time. Advised pt to ask for CM if any further questions/concerns/needs arise. Voices understanding. PLAN: Home w/family support and discharge plans in place. PT/OT evals pending. Derick BRYANT RN, CM
[2022-11-04 12:29] LABS: Pathologist Review Reviewed
--- NOTE | 2022-11-04 13:48 | PN.HOSP_ITS ---
Reason for Visit Reason for Visit: Diagnoses Hypotension, unspecified (11/03/22) Spinal stenosis, lumbar region without neurogenic claudication (11/03/22) Shock, unspecified (11/03/22) Subjective Subjective Patient seen and examined. She had no complaints. She denied any fever, chills, cough, chest pain, palpitations, dizziness, nausea, vomiting or diarrhea. Review of systems is otherwise negative. Shock has resolved; she is off the vasopresso rs. Objective Data Objective Data Vital Signs: Vital Signs Temp Pulse Resp BP Pulse Ox O2 Del Method O2 Flow Rate 98.9 F 104 H 19 H 114/63 92 Room Air 2 11/04/22 12:00 11/04/22 12:00 11/04/22 12:00 11/04/22 12:00 11/04/22 12:00 11/04/22 12:00 11/04/22 08:00 Oxygen Flow Rate (L/min) 2 Oxygen Delivery Method Room Air Weight: 180 lb 12.465 oz Body Mass Index (BMI) 34.1 Intake & Output: Intake and Output for Last 24 Hours 11/02/22 11/03/22 11/04/22 23:59 23:59 23:59 Intake Total 7431.73 / 7431.73 1096.67 / 1096.67 Output Total 1060 / 1060 625 / 625 Balance 6371.73 / 6371.73 471.67 / 471.67 Lab / Micro Data Result Diagrams: 11/04/22 10:30 11/04/22 05:00 Labs: Laboratory Results - last 24 hr 11/03/22 13:08: Diff Path Review Reviewed 11/03/22 13:08: Blood Type A NEGATIVE, Antibody Screen NEGATIVE, Crossmatch See Detail 11/03/22 20:25: WBC 15.8 H, RBC 4.05 L, Hgb 11.4 L, Hct 36.1 L, MCV 89.1, MCH 28.1, MCHC 31.6 L, RDW Std Deviation 46.5 H, RDW Coeff of Mayda 14.4, Plt Count 202, MPV 9.9, Immature Gran % (Auto) 0.900, Neut % (Auto) 85.2 H, Lymph % (Auto) 7.7 L, Sauk % (Auto) 6.1, Eos % (Auto) 0.0, Baso % (Auto) 0.1, Absolute Neuts (auto) 13.5 H, Absolute Lymphs (auto) 1.22, Nucleated RBC % 0 11/03/22 20:25: PT Cancelled, INR Cancelled, APTT Cancelled 11/03/22 20:25: Sodium 140, Potassium 5.4 H, Chloride 107, Carbon Dioxide 25.0, Anion Gap 8, BUN 19 H, Creatinine 1.21 H, Estim Creat Clear Calc 31.71, Est GFR (MDRD) Af Amer 56 L, Est GFR (MDRD) Non-Af 46 L, BUN/Creatinine Ratio 15.7, Glucose 185 H, Calcium 7.4 L, Phosphorus 3.9, Magnesium 1.8, Total Bilirubin 0.60, AST 133 H, ALT 92 H, Alkaline Phosphatase 32 L, Total Protein 5.5 L, Albumin 2.7 L, Globulin 2.8, Albumin/Globulin Ratio 1.0 11/03/22 23:13: PT 15.2 H, INR 1.2, APTT 23.0 L 11/04/22 05:00: WBC 9.9, RBC 3.02 L, Hgb 8.6 L, Hct 26.3 L, MCV 87.1, MCH 28.5, MCHC 32.7, RDW Std Deviation 47.0 H, RDW Coeff of Mayda 14.7 H, Plt Count 136 L, MPV 9.5, Immature Gran % (Auto) 0.400, Neut % (Auto) 75.0 H, Lymph % (Auto) 13.4 L, Sauk % (Auto) 11.1 H, Eos % (Auto) 0.0, Baso % (Auto) 0.1, Absolute Neuts (auto) 7.4, Absolute Lymphs (auto) 1.32, Nucleated RBC % 0 11/04/22 05:00: Sodium 138, Potassium 4.8, Chloride 107, Carbon Dioxide 25.0, Anion Gap 6, BUN 20 H, Creatinine 1.22 H, Estim Creat Clear Calc 31.45, Est GFR (MDRD) Af Amer 56 L, Est GFR (MDRD) Non-Af 46 L, BUN/Creatinine Ratio 16.4, Gluc ose 138 H, Calcium 7.2 L 11/04/22 10:30: Hgb 8.5 L, Hct 26.5 L Radiography Diagnostic Testing: Radiology Impression Abdomen/Pelvis CT 11/03/22 15:41 IMPRESSION: Postsurgical changes L4-5 and L5-S1.. No definitive evidence for significant intraspinal hemorrhage however cannot definitively exclude hemorrhage within the canal or posterior paraspinous soft tissues. MRI would be helpful for further characterization if clinically warranted There is hyperattenuated density within the proximal ascending colon of indeterminate etiology. Cannot exclude acute hemorrhage. Radionuclide tagged red blood cells study would be helpful for further evaluation if clinically warranted Electronically Signed: Reese Harley MD at 16:49 EST , ADDENDUM: 11/03/22 1657 IMPRESSION: Postsurgical changes L4-5 and L5-S1.. No definitive evidence for significant intraspinal hemorrhage however cannot definitively exclude hemorrhage within the canal or posterior paraspinous soft tissues. MRI would be helpful for further characterization if clinically warranted There is hyperattenuated density within the proximal ascending colon of indeterminate etiology. Cannot exclude acute hemorrhage. Radionuclide tagged red blood cells study would be helpful for further evaluation if clinically warranted N.B. : The above Results were Read Back by Reese Harley MD to Eduardo Rosario RN, and understanding confirmed on 11/03/2022 16:50:29 (ET). Electronically Signed: Reese Harley MD at 16:49 EST Reading Location ID and State: [facility] / [place] , Service support , Physical Exam Const alert, oriented x3 and no apparent distress HEENT head/scalp atraumatic and moist oral mucous membranes Head and Scalp: normocephalic Eyes PERRL, EOMs intact bilaterally and conjunctivae normal Neck no lymphadenopathy, supple and no JVD Resp normal respiratory effort Cardio regular rate, regular rhythm, S1 normal heart sound, S2 normal heart sound and no murmurs GI normal to inspection, nondistended, normoactive bowel sounds, soft to palpation and non-tender Extremity normal to inspection, full ROM and no clubbing, cyanosis or edema Skin Skin Narrative: intact dressing over lower back. Neuro oriented x3, CN's II-XII intact bilaterally, moves all extremities and no focal motor deficits Sensorium / Orientation: awake and alert Motor Exam: strength 5/5 throughout Psych affect normal Assessment & Plan Assessment/Plan (1) Hypotension: (2) Shock: (3) Spinal stenosis at L4-L5 level: PLAN: Plan #Post operative shock, likely hypovolemic * became hypotensive after she had surgery, and required vasopressors. * shock now resolved and blood pressure normalised. * Off vasopressors. * #Lumbar spinal stenosis * s/p posterior lumbar interbody fusion of L4. L5 and S1 with pedicle screw fixation. * management as per primary team spine surgery * #Post anemia, likely due to acute blood loss * Hb was 6 after surgery. Requrired transfusion of PRBC * Hb today is 8.5. This likely contributed to shock. * will monitor Hb. Transfuse to keep Hb <7 * #HYpocalcemia: Ca is 7.2. Will replace. #Hypothyroidism: on synthroid. #Depression: on venlafaxine. DVT prophylaxis: SCDs Total time spent on seeing patient, physical exam, reviewing chart, discussion of plan with patient and family, nursing and ancillary staff and documentation: 27 mins Charges/Coding Visit Charges Inpatient E&M: 14773 Subs Hosp L2
[2022-11-04] MEDS: Calcium Carbonate 500 MG Tablet PO (14:18)
[2022-11-04] MEDS: Latanoprost 0.005% 1 Bottle 1 DRP EACH EYE (21:11)
[2022-11-05] VITALS (8 sets, daily range): BP systolic 109–128; BP diastolic 61–77; PULSE 96–110; RESP 16–18; TEMP 36.7–37.4; O2SAT 93–100; BMI 33.7
[2022-11-05 03:39] LABS: Absolute Lymphocyte Count 1.49 X10^3/uL (0.83-4.51); Absolute Neutrophil Count 4.6 X10^3/uL (2.0-7.7); Basophil# 0.03 X10^3/uL; Basophil% 0.4 % (0-1); Eosinophil# 0.03 X10^3/uL; Eosinophils% 0.4 % (0-5); Hematocrit 22.7 % (37-47); Hemoglobin 7.2 g/dL (12.0-15.0); Lymphocyte # 1.49 X10^3/ul (0.83-4.51); Lymphocyte % 21.3 % (19-41); Mean Corp Hgb Conc 31.7 g/dL (32-36); Mean Corpuscular Hgb 28.3 pg (27.0-32.0); Mean Corpuscular Volume 89.4 fL (81-99); Mean Platelet Vol. 9.7 fl (6.2-12.0); Monocyte# 0.85 X10^3/uL; Monocyte% 12.1 % (0-10); NRBC Flagged by Analyzer 0 % (0-5); Neutrophil # 4.55 X10^3/uL (2.7-7.7); Neutrophil % 64.9 % (47-70); Platelet Count 115 K/mm3 (150-450); RBC Distribution Width CV 15.2 % (11.6-14.6); RBC Distribution Width SD 49.3 fl (35.1-43.9); Red Blood Count 2.54 M/mm3 (4.2-5.4)
[2022-11-05 03:55] LABS: Anion Gap 2 (5-15); BUN 23 mg/dL (7-18); BUN/Creat Ratio 19.8 RATIO (10-20); Calcium,Total 7.7 mg/dL (8.5-10.1); Chloride 108 mmol/L (98-107); Creatinine, Serum 1.16 mg/dL (0.55-1.02); EST Glomerular Filtration Rate 49 mL/min (>60); Est Glom Filt Rate - Afr Amer 59 mL/min (>60); Estimated Creatinine Clearance 33.08 ml/min; Glucose 134 mg/dL (74-106); Potassium 4.2 mmol/L (3.5-5.1); Sodium Level 140 mmol/L (136-145)
[2022-11-05] MEDS: Acetaminophen 500 MG Tablet 1000 MG PO ×3 (06:34→20:58)
[2022-11-05] MEDS: Levothyroxine 50 MCG Tablet PO (06:34)
[2022-11-05] MEDS: Cefazolin 1 GM/50 ML BAG IV ×3 (06:34→21:14)
[2022-11-05] MEDS: oxyCODONE 5 MG Tablet PO (08:57)
[2022-11-05] MEDS: Calcium Carbonate 500 MG Tablet PO ×2 (08:58→17:47)
[2022-11-05] MEDS: Senna/Docusate Sodium 1 Tablet 2 TABLET PO ×2 (11:01→20:57)
[2022-11-05] MEDS: Dorzolamide 2% 10ml Bottle 1 DRP EACH EYE (11:01)
[2022-11-05] MEDS: Polyethylene Glycol 3350 17 GM PACKET PO (11:01)
[2022-11-05] MEDS: Venlafaxine XR 75 MG Capsule PO (11:01)
--- NOTE | 2022-11-05 13:31 | PN.HOSP_ITS ---
Reason for Visit Reason for Visit: Diagnoses Hypotension, unspecified (11/03/22) Spinal stenosis, lumbar region without neurogenic claudication (11/03/22) Shock, unspecified (11/03/22) Subjective Subjective Patient seen and examined. She had no active complaints. She had an uneventful night and was working with PT at time of review. She has remained hemodynamically stable. Hb today is 9.2. Objective Data Objective Data Vital Signs: Vital Signs Temp Pulse Resp BP Pulse Ox O2 Del Method O2 Flow Rate 98.1 F 99 16 109/67 93 Room Air 2 11/05/22 08:54 11/05/22 08:54 11/05/22 08:54 11/05/22 08:54 11/05/22 08:54 11/05/22 08:54 11/05/22 07:25 Oxygen Flow Rate (L/min) 2 Oxygen Delivery Method Room Air Weight: 178 lb 5.663 oz Body Mass Index (BMI) 33.7 Intake & Output: Intake and Output for Last 24 Hours 11/03/22 11/04/22 11/05/22 23:59 23:59 23:59 Intake Total 7431.73 / 7431.73 1316.67 / 1676.67 660 / 660 Output Total 1060 / 1060 1200 / 2510 1705 / 1705 Balance 6371.73 / 6371.73 116.67 / -833.33 -1045 / -1045 Lab / Micro Data Result Diagrams: 11/05/22 03:30 11/05/22 03:30 Labs: Laboratory Results - last 24 hr 11/05/22 03:30: WBC 7.0, RBC 2.54 L, Hgb 7.2 L, Hct 22.7 L, MCV 89.4, MCH 28.3, MCHC 31.7 L, RDW Std Deviation 49.3 H, RDW Coeff of Mayda 15.2 H, Plt Count 115 L, MPV 9.7, Immature Gran % (Auto) 0.900, Neut % (Auto) 64.9, Lymph % (Auto) 21.3, Garfield % (Auto) 12.1 H, Eos % (Auto) 0.4, Baso % (Auto) 0.4, Absolute Neuts (auto) 4.6, Absolute Lymphs (auto) 1.49, Nucleated RBC % 0 11/05/22 03:30: Sodium 140, Potassium 4.2, Chloride 108 H, Carbon Dioxide 30.0, Anion Gap 2 L, BUN 23 H, Creatinine 1.16 H, Estim Creat Clear Calc 33.08, Est GFR (MDRD) Af Amer 59 L, Est GFR (MDRD) Non-Af 49 L, BUN/Creatinine Ratio 19.8, Glucose 134 H, Calcium 7.7 L Radiography Diagnostic Testing: Radiology Impression Chest X-Ray 11/04/22 05:15 IMPRESSION: Possible small effusion or lingular infiltrate Electronically Signed: Aaron Izquierdo MD at 0:00 EST Reading Location ID and State: [address] [place] [address] , Service support , Physical Exam Const alert, oriented x3 and no apparent distress HEENT head/scalp atraumatic and moist oral mucous membranes Head and Scalp: normocephalic Mouth: oral and palatal mucosa normal Eyes PERRL, EOMs intact bilaterally and conjunctivae normal Neck no lymphadenopathy, supple and no JVD Resp normal respiratory effort Cardio regular rate, regular rhythm, S1 normal heart sound, S2 normal heart sound and no murmurs GI normal to inspection, nondistended, normoactive bowel sounds, soft to palpation and non-tender Extremity normal to inspection, full ROM and no clubbing, cyanosis or edema Skin Skin Narrative: intact dressing over lower back. drain in place Neuro oriented x3, CN's II-XII intact bilaterally, moves all extremities and no focal motor deficits Sensorium / Orientation: awake and alert Motor Exam: strength 5/5 throughout Psych affect normal Assessment & Plan Assessment/Plan (1) Hypotension: (2) Shock: (3) Spinal stenosis at L4-L5 level: PLAN: Plan #Post operative shock, likely hypovolemic * became hypotensive after she had surgery, and required vasopressors. * shock now resolved and blood pressure normalised. * Off vasopressors. * #Lumbar spinal stenosis * s/p posterior lumbar interbody fusion of L4. L5 and S1 with pedicle screw fixation. * management as per primary team spine surgery * #Post anemia, likely due to acute blood loss * Hb was 6 after surgery. Requrired transfusion of PRBC * hb today has dropped to 7.2 from 8.5 yesterday. * will repeat Hb today at 2pm; if Hb <7, will transfuse with one unit of PRBC * likely due to blood loss from surgery. * will monitor. * #HYpocalcemia: improving. Calcium today is 7.7 today. #Hypothyroidism: on synthroid. #Depression: on venlafaxine. DVT prophylaxis: SCDs Total time spent on seeing patient, physical exam, reviewing chart, discussion of plan with patient and family, nursing and ancillary staff and documentation: 29 mins Charges/Coding Visit Charges Inpatient E&M: 24326 Subs Hosp L2
[2022-11-05 14:30] LABS: Absolute Lymphocyte Count 1.52 X10^3/uL (0.83-4.51); Absolute Neutrophil Count 5.4 X10^3/uL (2.0-7.7); Basophil# 0.04 X10^3/uL; Basophil% 0.5 % (0-1); Eosinophil# 0.08 X10^3/uL; Hematocrit 23.6 % (37-47); Hemoglobin 7.3 g/dL (12.0-15.0); Lymphocyte # 1.52 X10^3/ul (0.83-4.51); Mean Corp Hgb Conc 30.9 g/dL (32-36); Mean Corpuscular Hgb 28.3 pg (27.0-32.0); Mean Corpuscular Volume 91.5 fL (81-99); Mean Platelet Vol. 9.7 fl (6.2-12.0); Monocyte# 0.86 X10^3/uL; Monocyte% 10.8 % (0-10); NRBC Flagged by Analyzer 0 % (0-5); Neutrophil # 5.44 X10^3/uL (2.7-7.7); Neutrophil % 67.9 % (47-70); Platelet Count 129 K/mm3 (150-450); RBC Distribution Width CV 15.2 % (11.6-14.6); RBC Distribution Width SD 50.4 fl (35.1-43.9); Red Blood Count 2.58 M/mm3 (4.2-5.4)
[2022-11-05] MEDS: Latanoprost 0.005% 1 Bottle 1 DRP EACH EYE (20:58)
[2022-11-05] MEDS: 0.9% Saline Lock 10 ML Syringe IV (21:00)
[2022-11-06] VITALS (10 sets, daily range): BP systolic 115–144; BP diastolic 50–84; PULSE 92–104; RESP 16–18; TEMP 36.8–37.4; O2SAT 95–98; BMI 30.4
[2022-11-06] MEDS: Cefazolin 1 GM/50 ML BAG IV ×2 (05:14→15:14)
[2022-11-06] MEDS: 0.9% Saline Lock 10 ML Syringe IV (05:14)
[2022-11-06] MEDS: Acetaminophen 500 MG Tablet 1000 MG PO ×2 (05:15→13:58)
[2022-11-06] MEDS: Levothyroxine 50 MCG Tablet PO (05:16)
[2022-11-06 08:26] LABS: Anion Gap 2 (5-15); BUN 16 mg/dL (7-18); BUN/Creat Ratio 15.2 RATIO (10-20); Calcium,Total 8.2 mg/dL (8.5-10.1); Chloride 105 mmol/L (98-107); Creatinine, Serum 1.05 mg/dL (0.55-1.02); EST Glomerular Filtration Rate 55 mL/min (>60); Est Glom Filt Rate - Afr Amer 66 mL/min (>60); Estimated Creatinine Clearance 36.55 ml/min; Glucose 117 mg/dL (74-106); Potassium 4.5 mmol/L (3.5-5.1); Sodium Level 139 mmol/L (136-145)
[2022-11-06] MEDS: Calcium Carbonate 500 MG Tablet PO (09:02)
[2022-11-06] MEDS: Polyethylene Glycol 3350 17 GM PACKET PO (09:03)
[2022-11-06] MEDS: Senna/Docusate Sodium 1 Tablet 2 TABLET PO (09:03)
[2022-11-06] MEDS: Venlafaxine XR 75 MG Capsule PO (09:03)
[2022-11-06] MEDS: Dorzolamide 2% 10ml Bottle 1 DRP EACH EYE (09:03)
[2022-11-06 10:05] LABS: Hematocrit 22.4 % (37-47); Mean Corp Hgb Conc 31.3 g/dL (32-36); Mean Corpuscular Hgb 28.2 pg (27.0-32.0); Mean Corpuscular Volume 90.3 fL (81-99); Platelet Count 139 K/mm3 (150-450); RBC Distribution Width SD 49.4 fl (35.1-43.9); Red Blood Count 2.48 M/mm3 (4.2-5.4)
--- NOTE | 2022-11-06 11:22 | PN_ITS ---
Subjective Subjective Patient seen and examined. She had no complaints today and had an uneventful night. She denies any dizziness, palpitations, chest pain, back pain, nausea, vomiting or diarrhea. Review of systems is otherwise negative. Her Hb today is 7. Objective Data Objective Data Vital Signs: Vital Signs Temp Pulse Resp BP Pulse Ox O2 Del Method O2 Flow Rate 98.2 F 99 18 115/50 L 98 Room Air 2 11/06/22 09:12 11/06/22 09:12 11/06/22 09:12 11/06/22 09:12 11/06/22 09:12 11/06/22 09:12 11/06/22 05:37 Oxygen Flow Rate (L/min) 2 Oxygen Delivery Method Room Air Weight: 161 lb 4 oz Body Mass Index (BMI) 30.4 Intake & Output: Intake and Output for Last 24 Hours 11/04/22 11/05/22 11/06/22 23:59 23:59 23:59 Intake Total 1316.67 / 1676.67 1510 / 1510 50 / 50 Output Total 1200 / 2510 2405 / 3490 1670 / 1670 Balance 116.67 / -833.33 -895 / -1980 -1620 / -1620 Lab / Micro Data Result Diagrams: 11/06/22 07:34 11/06/22 07:34 Labs: Laboratory Results - last 24 hr 11/05/22 14:09: WBC 8.0, RBC 2.58 L, Hgb 7.3 L, Hct 23.6 L, MCV 91.5, MCH 28.3, MCHC 30.9 L, RDW Std Deviation 50.4 H, RDW Coeff of Mayda 15.2 H, Plt Count 129 L, MPV 9.7, Immature Gran % (Auto) 0.800, Neut % (Auto) 67.9, Lymph % (Auto) 19.0, Person % (Auto) 10.8 H, Eos % (Auto) 1.0, Baso % (Auto) 0.5, Absolute Neuts (auto) 5.4, Absolute Lymphs (auto) 1.52, Nucleated RBC % 0 11/06/22 07:34: Sodium 139, Potassium 4.5, Chloride 105, Carbon Dioxide 32.0, Anion Gap 2 L, BUN 16, Creatinine 1.05 H, Estim Creat Clear Calc 36.55, Est GFR (MDRD) Af Amer 66, Est GFR (MDRD) Non-Af 55 L, BUN/Creatinine Ratio 15.2, Glucose 117 H, Calcium 8.2 L 11/06/22 07:34: WBC 6.0, RBC 2.48 L, Hgb 7.0 L, Hct 22.4 L, MCV 90.3, MCH 28.2, MCHC 31.3 L, RDW Std Deviation 49.4 H, RDW Coeff of Mayda 15.0 H, Plt Count 139 L, MPV 10.0 Physical Exam Const alert, oriented x3 and no apparent distress General Appearance: cooperative HEENT normocephalic, head/scalp atraumatic and moist oral mucous membranes Eyes PERRL, EOMs intact bilaterally and conjunctivae normal Neck no lymphadenopathy, supple and no JVD Resp normal respiratory effort, normal air movement and clear to auscultation bilaterally Cardio regular rate, regular rhythm, S1 normal heart sound, S2 normal heart sound and no murmurs GI normal to inspection, nondistended, normoactive bowel sounds, soft to palpation and non-tender Extremity normal to inspection, full ROM and no clubbing, cyanosis or edema Skin Skin Narrative: intact dressing over lower back. drain in place Neuro oriented x3, CN's II-XII intact bilaterally, moves all extremities and no focal motor deficits Sensorium / Orientation: awake and alert Motor Exam: strength 5/5 throughout Psych affect normal Assessment & Plan Assessment/Plan (1) Hypotension: (2) Shock: (3) Spinal stenosis at L4-L5 level: PLAN: Plan #Post operative shock, likely hypovolemic * became hypotensive after she had surgery, and required vasopressors. * shock now resolved and blood pressure normalised. * Off vasopressors. * #Lumbar spinal stenosis * s/p posterior lumbar interbody fusion of L4. L5 and S1 with pedicle screw fixation. * management as per primary team spine surgery * #Post anemia, likely due to acute blood loss * Hb was 6 after surgery. Requrired transfusion of PRBC * Hb today is 7. * will transfuse with one unit of PRBC * will repeat hb after transfusion of one unit of PRBC. * * #HYpocalcemia: resolved. #Hypothyroidism: on synthroid. #Depression: on venlafaxine. DVT prophylaxis: SCDs Total time spent on seeing patient, physical exam, reviewing chart, discussion of plan with patient and family, nursing and ancillary staff and documentation: 30 mins Disposition: patient ok to be dc'd home after transfusion; will check CBC after transfusion to make sure Hb >7. Recommend patient seeing her PCP in 2 days for repeat CBC check to monitor Hb. Charges/Coding Visit Charges Inpatient E&M: 35890 Subs Hosp L2
[2022-11-06 16:21] LABS: Hemoglobin 8.4 g/dL (12.0-15.0)
[2022-11-06] MEDS: oxyCODONE 5 MG Tablet PO (17:18)
== END 2022-11-06 17:25 | disposition home or self-care (01) | DRG 459 ==
LOC: ACINP 07:24 → ICU 16:31 → MS3 11-05 12:56
PROVIDERS: Anesthesiology; Internal Medicine; Student in an Organized Health Care Education/Training Program; Admitting Provider Orthopaedic Surgery; PCP Family Medicine; Visit Provider Orthopaedic Surgery
PROC: 0SG10AJ Fusion of 2 or more Lumbar Vertebral Joints with Interbody Fusion Device, Posterior Approach, Anterior Column, Open Approach (ICD-10-PCS; CPT 22630; principal; 2022-11-03 07:00)
DX: M48.061 Spinal stenosis, lumbar region without neurogenic claudication (principal); T81.19XA Other postprocedural shock, initial encounter; D62 Acute posthemorrhagic anemia; M46.86 Other specified inflammatory spondylopathies, lumbar region; M46.87 Other specified inflammatory spondylopathies, lumbosacral region; M47.26 Other spondylosis with radiculopathy, lumbar region; M51.16 Intervertebral disc disorders with radiculopathy, lumbar region; M51.36 Other intervertebral disc degeneration, lumbar region; E03.9 Hypothyroidism, unspecified; Y83.8 Other surgical procedures as the cause of abnormal reaction of the patient, or of later complication, without mention of misadventure at the time of the procedure; Y92.234 Operating room of hospital as the place of occurrence of the external cause; G89.29 Other chronic pain; F32.A Depression, unspecified; E66.3 Overweight; Z79.890 Hormone replacement therapy; Z79.899 Other long term (current) drug therapy; Z86.73 Personal history of transient ischemic attack (TIA), and cerebral infarction without residual deficits
CPT/HCPCS: 36415; 71045; 72100; 74176; 76000; 80048; 80053; 83735; 84100; 85014; 85018; 85025; 85027; 85610; 85730; 86850; 86900; 86901; 86920; 86922; 94668; 94762; 97116; 97162; 97530; C1713; C1776; J7040; J7050; J7120; P9016; A4216; J0330; J2405

== ENCOUNTER 2022-11-09 08:47 | Emergency (ER) | payer SELFPAY ==
[2022-11-09 08:49] VITALS: BP 149/97; PULSE 89; RESP 14; TEMP 36.1; O2SAT 95; BMI 31.4
--- NOTE | 2022-11-09 09:41 | EDS_ITS ---
HPI History of Present Illness Chief Complaint: Lower Extremity Injury Informant: patient Onset/Context/Timing Onset: Days (3) Narrative Narrative: Patient had an L4-L5 fusion 1 week ago here with Dr. Ortega. 2 days ago she started having pain and weakness in her right lower extremity. She states it seems intermittent, her right leg seems to give out on her at times, she only really notices this issue when she is walking/weightbearing. She has had no new michi urinary or bowel incontinence or retention, but she has noticed urgency, like she needs to get to a toilet in a hurry with little warning, mostly with urinating. She did have a couple of minor urine leakage episodes but states that also occurred prior to her surgery. She denies any saddle anesthesia or numbness/tingling in either lower extremity. She notes that she had michi sciatica down her right lower extremity prior to the surgery, and she only occasionally gets pain that radiates to the foot now. [facility] Medical History (Updated 11/09/22 @ 11:[address] Genaro Jonas MD) Back pain History of pain when walking Migraine headache Non-smoker Shortness of breath on exertion Stroke/cerebrovascular accident Thyroid disease TIA (transient ischemic attack) Wears glasses Wears hearing aid Home Medications venlafaxine 37.5 mg capsule,extended release 24 hr (Effexor XR) 75 mg PO DAILY ANTIDEPRESSANT 12/06/21 [History Last Taken 11/03/22] dorzolamide 2 % eye drops 1 drp EACH EYE DAILY PREVENTION EYE DISEASE 09/09/22 [History Last Taken 11/02/22] latanoprost 0.005 % eye drops 1 drp EACH EYE DAILY EYE PREVENTION 09/09/22 [History Last Taken 11/02/22] timolol maleate 0.5 % eye drops 1 drp EACH EYE DAILY EYE PREVENTION 09/09/22 [History Last Taken 11/02/22] levothyroxine 50 mcg tablet 50 mcg PO DAILY THYROID 10/20/22 [History Last Taken 11/03/22] hydrocodone-acetaminophen 5-325mg 5mg-325mg 1 tab PO Q6H 7 days #28 tabs 11/03/22 [Rx Last Taken Unknown] methylprednisolone 4 mg tablets in a dose pack (Medrol (Tawanda)) 4 mg PO DAILY #21 tabs 11/09/22 [Rx Last Taken Unknown] polyethylene glycol 3350 17 gram oral powder packet (Miralax) 17 g PO DAILY 11/09/22 [History Last Taken Unknown] Allergy/AdvReac Type Severity Reaction Status Date / Time No Known Allergies Allergy Verified 11/09/22 08:48 Surgical History (Updated 11/09/22 @ 09:10 by Jesi Pat) H/O eye surgery H/O hernia repair H/O: hysterectomy History of back surgery Hx of appendectomy Hx of knee surgery Social History Smoking Status: Never smoker alcohol intake: never ROS ROS ED Constitutional Constitutional ED: Denies chills or fever(s) Gastrointestinal Gastrointestinal: Denies abdominal pain, constipation, fecal incontinence, nausea or vomiting Genitourinary Genitourinary ED: Reports as per HPI and other Details: no urinary retention ; Denies abdominal discomfort or urinary incontinence Musculoskeletal Musculoskeletal: Reports as per HPI and back pain; Denies neck pain Integumentary Denies rash or wounds Neurologic Neurologic: Reports as per HPI and weakness; Denies headache(s) or paresthesias EXAM Physical Exam Const Vital Signs: 11/09/22 08:49 Temperature 97 F L Temperature Source Temporal Pulse Rate 89 Respiratory Rate 14 Blood Pressure 149/97 H Blood Pressure Mean 114 Pulse Ox 95 Oxygen Delivery Method Room Air Positive well nourished and well developed General Appearance ED: well developed and NAD HEENT Negative for trauma or tenderness Eyes PERRL and EOMs intact bilaterally Neck full ROM and supple GI normal to inspection, nondistended, normoactive bowel sounds, soft to palpation and non-tender Back/Spine normal to inspection Lumbar Spine / Lower Back: ROM limited, paraspinal muscle tenderness and straight leg raise negative bilaterally; Negative for lumbar spinal tenderness Extremity normal to inspection, full ROM and no pedal edema Neuro oriented x3 and no sensory deficits noted Sensorium / Orientation: alert Motor Exam: strength 5/5 throughout and clonus absent Deep Tendon Reflexes: Rt Patellar (L4): 2+, Lt Patellar (L4): 2+, Rt Ankle (S1): 2+ and Lt Ankle (S1): 2+ Deep Tendon Reflexes Back: Rt Patellar (L4): 2+, Lt Patellar (L4): 2+, Rt Ankle (S1): 2+ and Lt Ankle (S1): 2+ Plantar Reflex: Downgoing: bilateral Psych mental status grossly normal and thought process normal Skin no rashes or lesions noted and no wounds MDM MDM MDM Narrative Medical decision making narrative: Discussed with patient surgeon Dr. Ortega. Apparently the patient also had some type of minor injury where she twisted and felt a pop, he is reassured by her exam and recommends getting a lumbar x-ray series to evaluate the hardware and bony alignment. These were obtained. I viewed the 2 view x-ray series of her lumbar spine, they appear unremarkable, hardware in good position no misalignment. Dr. Ortega in agreement. He recommends a Medrol Dosepak and close a patient follow-up, she has a walker to prevent herself from falling, she is comfortable with that plan. Discharge Plan Triage Chief Complaint: Lower Extremity Injury ED Provider: Genaro Jonas Dx/Rx/DC Orders Clinical Impression: Postoperative back pain Instructions: ED Back Pain (Acute or Chronic) Prescriptions: New methylprednisolone [Medrol (Tawanda)] 4 mg tablets,dose pack 4 mg PO DAILY Qty: 21 0RF No Action venlafaxine [Effexor XR] 37.5 mg capsule,extended release 24hr 75 mg PO DAILY latanoprost 0.005 % drops 1 drp EACH EYE DAILY Label Comments: INSTILL 1 DROP IN BOTH EYES EVERY DAY AT BEDTIME timolol maleate 0.5 % drops 1 drp EACH EYE DAILY Label Comments: INSTILL 1 DROP IN BOTH EYES EVERY MORNING dorzolamide 2 % drops 1 drp EACH EYE DAILY Label Comments: INSTILL 1 DROP IN RIGHT EYE EVERY DAY levothyroxine 50 mcg Tablet 50 mcg PO DAILY hydrocodone-acetaminophen 5-325 mg tablet 1 tab PO Q6H 7 Days Qty: 28 0RF polyethylene glycol 3350 [Miralax] 17 gram Powder In Packet 17 g PO DAILY Primary Care Provider: Guzman Chan Referrals: Reese Ortega DO [Med Staff - Active Staff] - (call for follow up instructions) Guzman Chan MD [Primary Care Provider] - Disposition Disposition: Home, Self Care
--- NOTE | 2022-11-09 10:30 | RAD_ITS ---
STUDY: X-RAY - LUMBAR SPINE REASON FOR EXAM: Female, 72 years old. Pain, minor injury, recent fusion TECHNIQUE: 2 view(s) of the lumbar spine were obtained. COMPARISON: Comparison is made with prior examination dated 12/06/2021. FINDINGS: There is an exaggerated lumbar lordosis. There is no substantial scoliosis. The patient is status post interpedicular screw and kleber fixation at the L4-L5 and L5-S1 levels with prosthetic disc placement. There is evidence of a grade 1 anterolisthesis of L4 on L5. Disc space narrowing at the L2-L3 level. The soft tissue structures are unremarkable. RAD/Lumbar Spine 2 or 3 Views IMPRESSION: Status post laminectomy and fusion at the L4-L5 and L5-S1 levels with prosthetic disc placement. Residual anterior listhesis of L4 on L5. Electronically Signed: New Allan MD at 11:10 EST ,
[2022-11-09 11:20] VITALS: RESP 12
== END 2022-11-09 11:21 | disposition home or self-care (01) ==
PROVIDERS: Emergency Provider Emergency Medicine; PCP Family Medicine; Visit Provider Emergency Medicine
DX: G89.18 Other acute postprocedural pain (principal); M54.9 Dorsalgia, unspecified; Z98.1 Arthrodesis status
CPT/HCPCS: 72100; 99282